=== PATIENT | female | born 1970 | race Two or more races ===

== ENCOUNTER 2019-01-19 13:09 | Emergency (ER) | payer SELFPAY ==
--- NOTE | 2019-01-19 13:52 | ER Document Report ---
ED Medical Screen (RME) - General Chief Complaint: Suicidal Ideation Stated Complaint: PSYCH/SI Time Seen by Provider: 01/19/19 13:35 Notes: 48-year-old female presents to the emergency department with suicidal ideations. She states every time she gets in a fight with her she gets very depressed and today she had thoughts of killing herself. No plan. No auditory or visual hallucinations. Exam: Depressed mood, flat affect I have greeted and performed a rapid initial assessment of this patient. A comprehensive ED assessment and evaluation of the patient, analysis of test results and completion of medical decision making process will be conducted by an additional ED providers. TRAVEL OUTSIDE OF THE [place] IN LAST 30 DAYS: No - Related Data Allergies/Adverse Reactions: No Known Allergies Allergy (Verified 01/19/19 13:22) Past Medical History - Social History Chew tobacco use (# tins/day): No Frequency of alcohol use: None Drug Abuse: None - Immunizations Hx Diphtheria, Pertussis, Tetanus Vaccination: Yes Physical Exam - Vital signs Vitals: Temp Pulse Resp BP Pulse Ox 97.6 F 77 16 148/86 H 100 01/19/19 13:12 01/19/19 13:12 01/19/19 13:12 01/19/19 13:12 01/19/19 13:12 Course - Vital Signs Vital signs: Temp Pulse Resp BP Pulse Ox 97.6 F 77 16 148/86 H 100 01/19/19 13:12 01/19/19 13:12 01/19/19 13:12 01/19/19 13:12 01/19/19 13:12
[2019-01-19 14:17] LABS: ABSOLUTE BASOPHILS # (AUTO) 0.1 10^3/uL (0.0-0.2); ABSOLUTE EOSINOPHILS # (AUTO) 0.1 10^3/uL (0.0-0.6); ABSOLUTE LYMPHOCYTES (AUTO) 1.1 10^3/uL (0.5-4.7); ABSOLUTE MONOCYTES (AUTO) 0.5 10^3/uL (0.1-1.4); BASOPHILS % (AUTO) 1.1 % (0-2); EOSINOPHILS % (AUTO) 1.6 % (0-6); HEMOGLOBIN 11.2 g/dL (12.0-15.5); MEAN CORPUSCULAR HEMOGLOBIN 24.8 pg (27.0-33.4); MEAN CORPUSCULAR VOLUME 77 fl (80-97); MONOCYTES % (AUTO) 5.9 % (3-13); PLATELET COUNT 435 10^3/uL (150-450); RED BLOOD COUNT 4.52 10^6/uL (3.72-5.28); RED CELL DISTRIBUTION WIDTH 18.9 % (11.5-14.0); SEGMENTED NEUTROPHILS % (AUTO) 77.4 % (42-78); TOTAL CELLS COUNTED % (AUTO) 100 %; WHITE BLOOD COUNT 7.7 10^3/uL (4.0-10.5)
[2019-01-19 14:28] LABS: APPEARANCE,URINE CLEAR; BILIRUBIN,URINE NEGATIVE (NEGATIVE); COLOR,URINE YELLOW; GLUCOSE, URINE NEGATIVE (NEGATIVE); KETONES,URINE TRACE mg/dL (NEGATIVE); LEUKOCYTE ESTERASE,URINE NEGATIVE (NEGATIVE); NITRITE,URINE NEGATIVE (NEGATIVE); PROTEIN,URINE NEGATIVE (NEGATIVE); URINE SPECIFIC GRAVITY 1.024; UROBILINOGEN,URINE NEGATIVE mg/dL (<2.0)
[2019-01-19 14:47] LABS: ALBUMIN 4.7 g/dL (3.5-5.0); ALKALINE PHOSPHATASE 59 U/L (38-126); ANION GAP 12 (5-19); ASPARTATE AMINO TRANSFERASE 31 U/L (14-36); BILIRUBIN,DIRECT 0.1 mg/dL (0.0-0.4); BILIRUBIN,TOTAL 0.3 mg/dL (0.2-1.3); BLOOD UREA NITROGEN 12 mg/dL (7-20); CALCIUM 9.6 mg/dL (8.4-10.2); CARBON DIOXIDE 26 mmol/L (22-30); CHLORIDE 107 mmol/L (98-107); GLUCOSE 89 mg/dL (75-110); POTASSIUM 4.1 mmol/L (3.6-5.0); TOTAL PROTEIN 8.6 g/dL (6.3-8.2)
[2019-01-19 14:51] LABS: ACETAMINOPHEN < 10 ug/mL (10-30); ALCOHOL < 10 mg/dL (NONE DETECTED); SALICYLATE < 1.0 mg/dL (2.0-20.0)
[2019-01-19 14:55] LABS: URINE AMPHETAMINES SCREEN NEGATIVE; URINE BARBITURATES SCREEN NEGATIVE; URINE BENZODIAZEPINES SCREEN NEGATIVE; URINE COCAINE SCREEN NEGATIVE; URINE MARIJUANA (THC) SCREEN NEGATIVE; URINE METHADONE SCREEN NEGATIVE; URINE PHENCYCLIDINE SCREEN NEGATIVE
--- NOTE | 2019-01-19 17:54 | PSYCHOLOGICAL NOTE ---
Psych Note - Psych Note Date seen by psych provider: 01/19/19 Time seen by psych provider: 16:54 Psych Note: Medication recommendations per [facility]'s contracted psychiatrist Dr. Ralph ORTIZ are as follows: Celexa 20mg daily Buspar 5mg Twice daily Impression/Plan: Patient is recommended for IVC petition for overnight mental health recommendations. Medication recommendations have been provided; patient will be re-evaluated. Dr. Bhardwaj was consulted on the care and management of this patient; attending physician is in agreement with recommendations and dispositions.
--- NOTE | 2019-01-19 18:10 | ER Document Report ---
ED General - General Chief Complaint: Suicidal Ideation Stated Complaint: PSYCH/SI Time Seen by Provider: 01/19/19 13:35 TRAVEL OUTSIDE OF THE [place] IN LAST 30 DAYS: No - HPI Notes: Patient is a 48-year-old female with a past history of depression presents emergency department for evaluation of suicidal ideation. She states that she specifically had some this morning, mentioned them, and is how she ended up here. She states she is had passive suicidal thoughts in the past. She has no plan. She is never acted on her thoughts. She has no history of psychiatric hospitalization. She does state that she is to be on medication for depression, used to see a counselor. She states that she believed it helped somewhat, and she believes she needs someone to talk to. When I asked the patient why she has not acted on any of her impulses, she states because of her children. She has been having stresses with her daughter, her , as well as her green card. She really will not elaborate. - Related Data Allergies/Adverse Reactions: No Known Allergies Allergy (Verified 01/19/19 13:22) Home Medications: None Past Medical History - General Information source: Patient - Social History Smoking Status: Never Smoker Chew tobacco use (# tins/day): No Frequency of alcohol use: None Drug Abuse: None Family History: Reviewed & Not Pertinent Patient has suicidal ideation: Yes Patient has homicidal ideation: No Psychiatric Medical History: Reports: Hx Depression Surgical Hx: Negative - Immunizations Hx Diphtheria, Pertussis, Tetanus Vaccination: Yes Review of Systems - Review of Systems Constitutional: No symptoms reported EENT: No symptoms reported Cardiovascular: No symptoms reported Respiratory: No symptoms reported Gastrointestinal: No symptoms reported Genitourinary: No symptoms reported Musculoskeletal: No symptoms reported Skin: No symptoms reported Neurological/Psychological: See HPI Physical Exam - Vital signs Vitals: Temp Pulse Resp BP Pulse Ox 97.6 F 77 16 148/86 H 100 01/19/19 13:12 01/19/19 13:12 01/19/19 13:12 01/19/19 13:12 01/19/19 13:12 - Notes Notes: Vital signs reviewed, please refer to chart. Head is normocephalic, atraumatic. Pupils equal round, reactive to light. Neck is supple without meningismus. Heart is regular rate and rhythm. Lungs are clear to auscultation bilaterally. Abdomen is soft, nontender, normoactive bowel sounds throughout. Extremities without cyanosis, clubbing. Posterior calves are nontender. Peripheral pulses are equal. Skin is warm and dry. Patient is awake, alert, neurological exam is nonfocal. She makes good eye contact, is mildly agitated in affect, but appropriate with examiner. Course - Re-evaluation Re-evalutation: 01/19/19 18:07 Patient presents to the emergency department for evaluation of suicidal ideation. She already has psychosocial evaluation. They recommended BuSpar and Celexa. Medication orders were placed. Patient is medically cleared, has no other acute complaints or concerns. Awaiting response to medication and reevaluation by psychosocial team. - Vital Signs Vital signs: Temp Pulse Resp BP Pulse Ox 97.4 F 68 16 156/95 H 98 01/19/19 17:43 01/19/19 17:43 01/19/19 17:43 01/19/19 17:43 01/19/19 17:43 - Laboratory Result Diagrams: 01/19/19 13:46 01/19/19 13:46 Laboratory results interpreted by me: 01/19/19 01/19/19 01/19/19 13:46 13:46 13:46 Hgb 11.2 L Hct 35.0 L MCV 77 L MCH 24.8 L RDW 18.9 H Total Protein 8.6 H Urine Ketones TRACE H Salicylates < 1.0 L Acetaminophen < 10 L - EKG Interpretation by Me Additional EKG results interpreted by me: 01/19/19 18:08 Sinus mechanism with a rate of 65 bpm. Normal axis and intervals, no acute ST changes concerning for ischemia or infarction. Discharge - Discharge Clinical Impression: Suicidal ideation Depressed Qualifiers: Depression Type: unspecified Qualified Code(s): F32.9 - Major depressive disorder, single episode, unspecified Condition: Stable Disposition: OTHER
[2019-01-19] MEDS: BUSPIRONE HCL 10 MG TABLET PO SCH (18:24)
[2019-01-19] MEDS: CITALOPRAM HYDROBROMIDE 20 MG TABLET PO SCH (18:25)
[2019-01-20] MEDS: BUSPIRONE HCL 10 MG TABLET PO SCH (10:16)
[2019-01-20] MEDS: CITALOPRAM HYDROBROMIDE 20 MG TABLET PO SCH (10:16)
--- NOTE | 2019-01-20 11:04 | ER Document Report ---
Doctor's Note Notes: 01/20/19 11:03 assessed this patient. Patient without any complaints. Lungs clear to auscultation bilaterally. Regular rate and rhythm. Patient to be discharged with Celexa 20 mg daily and BuSpar 5 mg twice daily per psychiatric recommendations.
--- NOTE | 2019-01-20 11:46 | EKG REPORT ---
SEVERITY:- NORMAL ECG - SINUS RHYTHM : Confirmed by: Martha Agrawal MD 20-Jan-2019 11:45:41
[2019-01-20 12:07] VITALS: BP 136/83
== END 2019-01-20 12:07 | disposition home or self-care (01) ==
LOC: ER 13:09
DX: R45.851 Suicidal ideations (principal); F32.9 Major depressive disorder, single episode, unspecified; Z63.0 Problems in relationship with spouse or partner
CPT/HCPCS: 36415; 80053; 80307; 81001; 85025; 93005; 93010; 99285